=== PATIENT | female | born 1955 | race Caucasian/White ===

== ENCOUNTER 2017-08-10 09:30 | Inpatient (IN) | payer OTHER ==
[~2017-08-10] VITALS: Ht 175.3 cm; Wt 73.0 kg
[2017-08-10] MEDS ORDERED: ATORVASTATIN CA20 MG PO (10:01)
[2017-08-10] MEDS ORDERED: TRAMADOL HCL50 MG PO (10:01)
[2017-08-10] MEDS ORDERED: LISINOPRIL20 MG PO (10:01)
[2017-08-10] MEDS ORDERED: FORTAMET1000 MG (10:02)
[2017-08-10] MEDS ORDERED: GABAPENTIN800 MG PO (10:02)
[2017-08-10] MEDS ORDERED: OMEPRAZOLE20 M1 PO (10:02)
[2017-08-10] MEDS ORDERED: HYDROCHLOROTH12.5 M1 PO (10:03)
[2017-08-10] MEDS ORDERED: HUM (10:03)
[2017-08-18] MEDS ORDERED: GABAPENTIN800 MG PO (11:59)
[2017-08-18] MEDS ORDERED: DOCUSATE SODIU100 MG PO (11:59)
[2017-08-18] MEDS ORDERED: PERCOCET 5-3251 EACH PO (12:00)
[2017-08-18] MEDS ORDERED: CLONAZEPAM1 MG PO (12:00)
[2017-08-18] MEDS ORDERED: AMOX-CLAV 875-1 EACH PO (12:00)
== END 2017-08-18 14:46 | disposition home or self-care (01) | DRG 455 ==
LOC: O/R 08-17 05:45 → PED 08-17 05:45 → SURH 08-17 09:15 → PED 08-17 13:06
PROVIDERS: Orthopaedic Surgery Orthopaedic Surgery of the Spine
PROC: 0SG0071 Fusion of Lumbar Vertebral Joint with Autologous Tissue Substitute, Posterior Approach, Posterior Column, Open Approach (ICD-10-PCS; 2017-08-17)
PROC: 0ST20ZZ Resection of Lumbar Vertebral Disc, Open Approach (ICD-10-PCS; 2017-08-17)
PROC: 0SG00AJ Fusion of Lumbar Vertebral Joint with Interbody Fusion Device, Posterior Approach, Anterior Column, Open Approach (ICD-10-PCS; 2017-08-17)
PROC: 07DS3ZZ Extraction of Vertebral Bone Marrow, Percutaneous Approach (ICD-10-PCS; 2017-08-17)
PROC: 0SG00A0 Fusion of Lumbar Vertebral Joint with Interbody Fusion Device, Anterior Approach, Anterior Column, Open Approach (ICD-10-PCS; principal; 2017-08-17 09:15)
DX: M47.26 Other spondylosis with radiculopathy, lumbar region (principal); M48.061 Spinal stenosis, lumbar region without neurogenic claudication; M51.16 Intervertebral disc disorders with radiculopathy, lumbar region; I10 Essential (primary) hypertension; E11.9 Type 2 diabetes mellitus without complications